=== PATIENT | male | born 1950 | race Caucasian/White ===

== ENCOUNTER 2017-01-09 12:44 | Day surgery (SDC) | payer MEDICARE, OTHER ==
[~2017-01-09 12:44] MED LIST: RINGER'S SOLUTION,LACTATED 1,000 ML IV PRN; ceFAZolin SODIUM 2 GM in DEXTROSE 5 % IN WATER 50 ML IV PRN
[2017-01-09] MEDS ORDERED: BUPIVACAINE HCL/EPINEPHRINE 50 ML VIAL IJ ONE ×2 (14:50)
[2017-01-09] MEDS ORDERED: RINGER'S SOLUTION,LACTATED 1,000 ML IV ONE (17:02)
[2017-01-09] MEDS ORDERED: RINGER'S SOLUTION,LACTATED 1,000 ML IV PRN (17:25)
[2017-01-09] MEDS ORDERED: IBUPROFEN 800 MG TABLET PO ONE (18:00)
--- NOTE | 2017-01-09 19:38 | OR ---
Operative Report - Dictated Report Narrative: Date of operation: 01/09/2017 Preoperative diagnosis: Giant right inguinal hernia Postoperative diagnosis: Giant indirect right inguinal hernia Operation: Repair of indirect right inguinal hernia using a large Bard mesh plug and patch Surgeon: PILI Herron MD Anesthesia: Gen. LMA Heber Carlin CRNA Indications for procedure: The patient is a 66-year-old male with an enlarging and increasingly symptomatic right inguinal hernia. He was initially seen with a hernia on 09/27/2013 however did not wish to have anything done at that time. The hernia has increased greatly in size however can be reduced with difficulty. The patient was given a Suprep bowel prep kit to use yesterday, however he states he did not do that but instead ate some greasy food [employer] food and "his bowels worked just fine". The patient was given chlorhexidine prep supplies for a shower last night and this morning, however states he did not use these and bathed with Ivory soap instead. After arrival in ambulatory surgery the patient was given chlorhexidine wipes which he did use. Findings: Giant indirect right inguinal hernia Narrative of procedure: The patient was identified preoperatively, the surgical site was marked, and prior to the administration of anesthetic a multidisciplinary timeout was observed. The patient was placed supine, SCDs were applied, and 2 g of intravenous Ancef administered. Gen. LMA Anesthetic was administered. The patient's lower abdomen and genitalia were clipped of hair. The hernia was reduced. The patient's abdomen and genitalia were prepped with Betadine solution and the right groin isolated with 4 sterile towels. The remainder of the patient was covered with a sterile disposable drape. A transverse skin incision was made over the midportion of the right inguinal canal. Dissection was carried through subcutaneous tissue with electrocautery until the fascia of the external oblique aponeurosis was encountered. This was incised in the direction of its fibers down to and including the external inguinal ring. The ilioinguinal nerve was identified and protected throughout the procedure. There was a large amount of herniated material extending into the scrotum. This was gradually developed until the pubic tubercle was isolated. The herniated material was then developed bluntly out of the scrotum and returned to the abdomen allowing the cord structures to be encircled at the pubic tubercle, and a Lisa drain placed for traction. Inspection of the inguinal floor revealed it to be sounded out to the level of the inferior epigastric vessels. Inspection of the large hernia sac revealed that the cord structures were splayed out over the surface. The sac was opened , the small intestine was returned to the abdomen, and the cord structures were then bluntly developed off the sac back to the level of the internal inguinal ring. The neck of the sac was then transfixed under direct vision with 2 pursestring sutures of 0 Ethibond. The sac was ligated, excess sac amputated, and the neck of the sac redirected superiorly under the conjoined tendon using the same suture of 0 Ethibond. Next the cord structures were loosely reapproximated with interrupted sutures of 3-0 chromic. A Bard mesh plug was placed in the inguinal floor and secured circumferentially to the pubic tubercle , along the conjoined tendon, and along the shelving border of the inguinal ligament with interrupted sutures of 0 Ethibond. A suture of 0 Ethibond was then placed just medial to the cord structures between the conjoined tendon, lateral border of the plug, and the shelving border of the inguinal ligament. A tailored mesh patch was placed in the inguinal floor and secured circumferentially to the pubic tubercle, along the conjoined tendon, and along the shelving border of the inguinal ligament with interrupted sutures of 0 Ethibond. The wings of the patch were wrapped around the cord structures and secured laterally with additional interrupted sutures of 0 Ethibond. The new internal inguinal ring was found to be of sufficient caliber to admit cord structures without undue constriction. The wound was inspected for hemostasis, which appeared complete. The cord structures and ilioinguinal nerve were returned to an anatomic position. After receiving a correct sponge needle and instrument count attention was turned to closing the wound. The external oblique aponeurosis was approximated with a running suture of 2-0 Vicryl. Subcutaneous tissues were approximated with interrupted sutures of 2-0 chromic. The skin was secured with a running subcuticular suture of 4-0 Vicryl. The operative site was washed and dried. A dressing of Dermabond, folded 4 x 4, and Medipore tape was applied. The scrotum was checked to ensure that the testicles were in anatomic position. The operative procedure was terminated at this point. The patient tolerated the anesthetic and procedure well without complication. There was no measurable blood loss. No specimen was submitted. 0.5% Marcaine with epinephrine was used for local anesthetic infiltration. The patient was transferred to the recovery room awake, extubated, and in stable condition. The patient remained stable throughout a period of postoperative observation. He was able to tolerate PO intake. His pain was controlled with po ibuprofen. He was able to ambulate without assistance. The dressing remained dry. He was discharged home with instructions not to lift and not to drive. He is to keep the current dressing dry and intact for 48 hours, but then may shower and change the dressing daily or as needed. The patient does not want narcotic pain medication and will use OTC ibuprofen 800 mg po Q8hrs as needed for pain. The patient has phone numbers to call for questions or prn signs of wound infection or hematoma. A return office appointment will be arranged for later this week. Reviewed and electronically signed
[2017-01-09 19:41] VITALS: BP 101/52
== END 2017-01-09 12:45 | disposition home or self-care (01) ==
LOC: AMB 12:44
PROVIDERS: ATTEND Surgery
PROC: 0YU50JZ Supplement Right Inguinal Region with Synthetic Substitute, Open Approach (ICD-10-PCS; principal; 2017-01-09 14:00)
DX: K40.90 Unilateral inguinal hernia, without obstruction or gangrene, not specified as recurrent (principal); I48.91 Unspecified atrial fibrillation; E78.5 Hyperlipidemia, unspecified; K21.9 Gastro-esophageal reflux disease without esophagitis; M19.90 Unspecified osteoarthritis, unspecified site; F17.200 Nicotine dependence, unspecified, uncomplicated; Z68.23 Body mass index [BMI] 23.0-23.9, adult